=== PATIENT | male | born 1950 | race Caucasian/White ===

== ENCOUNTER 2017-02-10 15:46 | Emergency (ER) | payer OTHER, BC ==
[2017-02-10] MEDS ORDERED: Sodium Chloride 0.9% 10 ML Syringe FLUSH PRN (16:33)
--- NOTE | 2017-02-10 16:39 | EDM.PDOC ---
ED HPI GENERAL MEDICAL PROBLEM - General Chief Complaint: Gastrointestinal Problem Stated Complaint: NAUSEA,WEAKNESS,CONFUSION Time Seen by Provider: 02/10/17 16:09 Source of Information: Reports: Patient History Limitations: Reports: No Limitations - History of Present Illness INITIAL COMMENTS - FREE TEXT/NARRATIVE: 66 y/o M with highly complex medical history including pulmonary hypertension on Remodulin subcutaneous via abd wall port, and Adempas, also cirrhosis due to hep C and remote ETOH abuse, diabetes, presents with malaise. Had vomiting/ diarrhea 2-3 days ago, many episodes, was seen in [facility] ED and discharged with diagnosis of gastroenteritis. Vomiting has resolved. Poor PO intake due to nausea/malaise. Decreased urinary output today, patient states he' s hardly urinated at all. Continues to have some diarrhea but improving. No abdominal pain. No fever. Mild SOB. No CP. Denies cough. No lower extremity pain/swelling. Compliant with meds. Visiting here in town as daughter gave to twins yesterday. Family states he's been intermittenly mildly confused today which is not typical for him. - Related Data Allergies Allergy/AdvReac Type Severity Reaction Status Date / Time duloxetine HCl Allergy Nausea Verified 02/10/17 15:55 [From Cymbalta] phenylbutazone Allergy Edema Verified 02/10/17 15:55 [From Butazolidin] Home Meds: Home Meds Finasteride [Proscar] 5 mg PO DAILY 10/28/15 [History] Pregabalin [Lyrica] 300 mg PO BID 10/28/15 [History] Tamsulosin [Flomax] 0.4 mg PO BID 10/28/15 [History] glipiZIDE [Glipizide] 2.5 mg PO BID 10/28/15 [History] metFORMIN [Glucophage XR] 500 mg PO DAILY 10/28/15 [History] Bumetanide 2 mg PO BID #0 04/15/16 [Rx] Allopurinol [Zyloprim] 100 mg PO DAILY 12/22/16 [History] Ascorbic Acid [Vitamin C] 100 mg PO DAILY 12/22/16 [History] Folic Acid 1 mg PO DAILY 12/22/16 [History] Pantoprazole Sodium [Protonix] 40 mg PO DAILY 12/22/16 [History] Potassium Chloride [Klor-Con] 20 meq PO DAILY 12/22/16 [History] Riociguat [Adempas] 0.5 mg PO ASDIRECTED 12/22/16 [History] Spironolactone [Aldactone] 25 mg PO TID 12/22/16 [History] Temazepam 30 mg PO BEDTIME 12/22/16 [History] oxyCODONE 5 mg PO BID 12/22/16 [History] Treprostinil Sodium [Remodulin] 2.4 mg IJ ASDIRECTED 02/09/17 [History] Past Medical History HEENT History: Reports: Impaired Vision Cardiovascular History: Reports: Hypertension, Pulmonary Hypertension, PVD Respiratory History: Reports: COPD Other Respiratory History: pulmonary hypertension Gastrointestinal History: Reports: Other (See Below) Other Gastrointestinal History: hepatitis C, treated Genitourinary History: Reports: BPH Musculoskeletal History: Reports: None Neurological History: Reports: Neuropathy, Diabetic Other Neuro History: Diabetic neuropathy in lower extremities Psychiatric History: Reports: None Endocrine/Metabolic History: Reports: Diabetes, Type II, IDDM Hematologic History: Reports: None Immunologic History: Reports: None Oncologic (Cancer) History: Reports: None Dermatologic History: Reports: None - Infectious Disease History Infectious Disease History: Reports: Hepatitis C - Past Surgical History Head Surgeries/Procedures: Reports: None Respiratory Surgical History: Reports: Other (See Below) Social & Family History - Family History Family Medical History: Noncontributory - Tobacco Use Smoking Status *Q: Current Some Day Smoker Years of Tobacco use: 40 Packs/Tins Daily: 0.5 Used Tobacco, but Quit: Yes Month Tobacco Last Used: 05/23/2010 Second Hand Smoke Exposure: No - Caffeine Use Caffeine Use: Reports: Coffee, Soda - Alcohol Use Days Per Week of Alcohol Use: 7 Number of Drinks Per Day: 10 (3-10) Total Drinks Per Week: 70 - Recreational Drug Use Recreational Drug Use: No - Living Situation & Occupation Living situation: Reports: , with Spouse Occupation: Disabled ED ROS GENERAL - Review of Systems Review Of Systems: See Below Constitutional: Reports: Malaise, Weakness, Fatigue HEENT: Reports: No Symptoms Respiratory: Denies: Shortness of Breath, Cough Cardiovascular: Reports: Dyspnea on Exertion. Denies: Chest Pain Endocrine: Reports: Fatigue GI/Abdominal: Reports: Nausea, Vomiting. Denies: Abdominal Pain : Denies: Dysuria Musculoskeletal: Denies: Leg Pain Skin: Reports: No Symptoms Neurological: Reports: Confusion, Dizziness Psychiatric: Reports: No Symptoms Hematologic/Lymphatic: Reports: No Symptoms Immunologic: Reports: No Symptoms ED EXAM, GI/ABD - Physical Exam Exam: See Below Exam Limited By: No Limitations General Appearance: Alert, No Apparent Distress, Other (ill appearing) Eyes: Bilateral: Normal Appearance Ears: Normal External Exam Nose: Normal Inspection Throat/Mouth: Other (dry mucous membranes) Head: Atraumatic, Normocephalic Neck: Normal Inspection Respiratory/Chest: No Accessory Muscle Use, Chest Non-Tender, Other (bibasilar crackles most prominent on left) Cardiovascular: Normal Peripheral Pulses, Regular Rate, Rhythm, No Edema GI/Abdominal Exam: Soft, Other (distended, + fluid wave, nontender, no rebound/ guarding, port in LLQ with dressing clean, dry, and intact. approx 6 cm surrounding erythema/warmth confluent, no crepitus, states this is stable appearance and typical after dressing changes (dressing changed yesterday)) Back Exam: Normal Inspection Extremities: Other (bilat lower extremity brawny dark color changes suggestive of chronic venous stasis, no edema) Neurological: Alert, Oriented, CN II-XII Intact, Normal Cognition Psychiatric: Normal Affect, Normal Mood Skin Exam: Warm, Dry, Intact, Normal Color, No Rash Course - Vital Signs Last Recorded V/S: Last Vital Signs Temp 36.3 C 02/10/17 15:56 Pulse 94 02/10/17 15:56 Resp BP 83/60 L 02/10/17 15:56 Pulse Ox 84 L 02/10/17 15:56 - Orders/Labs/Meds Orders: Active Orders 24 hr Category Date Time Status Peripheral IV Care [RC] . DIRECTED Care 02/10/17 16:34 Active Chest 1V Frontal [CR] Stat Exams 02/10/17 16:33 Taken CULTURE BLOOD [BC] Stat Lab 02/10/17 16:57 Received CULTURE BLOOD [BC] Stat Lab 02/10/17 17:04 Received Magnesium Sulfate/Water [Magnesium Sulfate 2 GM in Med 02/10/17 17:52 Active Water 50 ML] 2 gm Premix Bag 1 bag IV ONETIME Sodium Chloride 0.9% [Saline Flush] Med 02/10/17 16:33 Active 10 ml FLUSH ASDIRECTED PRN Vancomycin 1 gm Med 02/10/17 17:15 Active Vancomycin 500 mg Sodium Chloride 0.9% [Normal Saline] 500 ml IV Q24H Blood Culture x2 Reflex Set [OM.PC] Stat Oth 02/10/17 16:33 Ordered Peripheral IV Insertion Adult [OM.PC] Routine Oth 02/10/17 16:33 Ordered EKG 12 Lead [EK] Stat Ther 02/10/17 16:35 Ordered EKG 12 Lead [EK] Stat Ther 02/10/17 17:19 Ordered Medication Orders Vancomycin HCl 1 gm/Vancomycin HCl 500 mg/ Sodium Chloride 500 mls @ 333 mls/ hr IV Q24H USHA Last Admin: 02/10/17 18:38 Dose: 333 mls/hr Magnesium Sulfate 2 gm/ Premix 50 mls @ 25 mls/hr IV ONETIME ONE Stop: 02/10/17 19:51 Last Admin: 02/10/17 18:45 Dose: 25 mls/hr Sodium Chloride (Saline Flush) 10 ml FLUSH ASDIRECTED PRN PRN Reason: Keep Vein Open Last Admin: 02/10/17 16:48 Dose: 10 ml Labs: Laboratory Tests 02/10/17 02/10/17 02/10/17 Range/Units 16:05 16:05 16:05 WBC 5.45 (4.23-9.07) K/mm3 RBC 5.57 (4.63-6.08) M/mm3 Hgb 16.1 (13.7-17.5) gm/L Hct 48.3 (40.1-51.0) % MCV 86.7 (79.0-92.2) fl MCH 28.9 (25.7-32.2) pg MCHC 33.3 (32.2-35.5) g/dl RDW Std Deviation 51.0 H (35.1-43.9) fL Plt Count 136 L (163-337) K/mm3 MPV 12.2 (9.4-12.3) fl Neut % (Auto) 78.3 H (34.0-67.9) % Lymph % (Auto) 10.1 L (21.8-53.1) % [place] % (Auto) 10.1 (5.3-12.2) % Eos % (Auto) 1.1 (0.8-7.0) Baso % (Auto) 0.2 (0.1-1.2) % Neut # (Auto) 4.27 (1.78-5.38) K/mm3 Lymph # (Auto) 0.55 L (1.32-3.57) K/mm3 [place] # (Auto) 0.55 (0.30-0.82) K/mm3 Eos # (Auto) 0.06 (0.04-0.54) K/mm3 Baso # (Auto) 0.01 (0.01-0.08) K/mm3 PT 13.4 H (8.0-13.0) SECONDS INR 1.21 Sodium 127 L (136-145) mEq/L Potassium 4.6 (3.5-5.1) mEq/L Chloride 92 L (98-107) mEq/L Carbon Dioxide 25 (21-32) mEq/L Anion Gap 14.6 (5-15) BUN 65 H (7-18) mg/dL Creatinine 2.7 H (0.7-1.3) mg/dL Est Cr Clr Drug Dosing TNP Estimated GFR (MDRD) 24 (>60) mL/min BUN/Creatinine Ratio 24.1 H (14-18) Glucose 174 H (80-115) mg/dL POC Glucose (80-115) mg/dL Lactic Acid (0.4-2.0) mmol/L Calcium 9.4 (8.5-10.1) mg/dL Magnesium 1.5 L (1.8-2.4) mg/dl Total Bilirubin 1.2 H (0.2-1.0) mg/dL AST 20 (15-37) U/L ALT 22 (16-63) U/L Alkaline Phosphatase 105 (46-116) U/L Ammonia (11-32) umol/L Troponin I < 0.017 (0.00-0.056) ng/mL NT-Pro-B Natriuret Pep 4059 H (0-125) pg/mL Total Protein 9.9 H (6.4-8.2) g/dl Albumin 3.9 (3.4-5.0) g/dl Globulin 6.0 gm/dL Albumin/Globulin Ratio 0.7 L (1-2) Lipase 185 (73-393) U/L Urine Color (Yellow) Urine Appearance (Clear) Urine pH (5.0-8.0) Ur Specific [place] (1.005-1.030) Urine Protein (Negative) Urine Glucose (UA) (Negative) Urine Ketones (Negative) Urine Occult Blood (Negative) Urine Nitrite (Negative) Urine Bilirubin (Negative) Urine Urobilinogen (0.2-1.0) Ur Leukocyte Esterase (Negative) Urine RBC (0-5) /hpf Urine WBC (0-5) /hpf Ur Epithelial Cells (0-5) /hpf Urine Bacteria (FEW) /hpf Hyaline Casts (0-5) /lpf Urine Mucus (FEW) /hpf 02/10/17 02/10/17 02/10/17 Range/Units 16:08 16:57 16:57 WBC (4.23-9.07) K/mm3 RBC (4.63-6.08) M/mm3 Hgb (13.7-17.5) gm/L Hct (40.1-51.0) % MCV (79.0-92.2) fl MCH (25.7-32.2) pg MCHC (32.2-35.5) g/dl RDW Std Deviation (35.1-43.9) fL Plt Count (163-337) K/mm3 MPV (9.4-12.3) fl Neut % (Auto) (34.0-67.9) % Lymph % (Auto) (21.8-53.1) % [place] % (Auto) (5.3-12.2) % Eos % (Auto) (0.8-7.0) Baso % (Auto) (0.1-1.2) % Neut # (Auto) (1.78-5.38) K/mm3 Lymph # (Auto) (1.32-3.57) K/mm3 [place] # (Auto) (0.30-0.82) K/mm3 Eos # (Auto) (0.04-0.54) K/mm3 Baso # (Auto) (0.01-0.08) K/mm3 PT (8.0-13.0) SECONDS INR Sodium (136-145) mEq/L Potassium (3.5-5.1) mEq/L Chloride (98-107) mEq/L Carbon Dioxide (21-32) mEq/L Anion Gap (5-15) BUN (7-18) mg/dL Creatinine (0.7-1.3) mg/dL Est Cr Clr Drug Dosing Estimated GFR (MDRD) (>60) mL/min BUN/Creatinine Ratio (14-18) Glucose (80-115) mg/dL POC Glucose 175 H (80-115) mg/dL Lactic Acid 1.3 (0.4-2.0) mmol/L Calcium (8.5-10.1) mg/dL Magnesium (1.8-2.4) mg/dl Total Bilirubin (0.2-1.0) mg/dL AST (15-37) U/L ALT (16-63) U/L Alkaline Phosphatase (46-116) U/L Ammonia 23 (11-32) umol/L Troponin I (0.00-0.056) ng/mL NT-Pro-B Natriuret Pep (0-125) pg/mL Total Protein (6.4-8.2) g/dl Albumin (3.4-5.0) g/dl Globulin gm/dL Albumin/Globulin Ratio (1-2) Lipase (73-393) U/L Urine Color (Yellow) Urine Appearance (Clear) Urine pH (5.0-8.0) Ur Specific [place] (1.005-1.030) Urine Protein (Negative) Urine Glucose (UA) (Negative) Urine Ketones (Negative) Urine Occult Blood (Negative) Urine Nitrite (Negative) Urine Bilirubin (Negative) Urine Urobilinogen (0.2-1.0) Ur Leukocyte Esterase (Negative) Urine RBC (0-5) /hpf Urine WBC (0-5) /hpf Ur Epithelial Cells (0-5) /hpf Urine Bacteria (FEW) /hpf Hyaline Casts (0-5) /lpf Urine Mucus (FEW) /hpf 02/10/17 Range/Units 18:10 WBC (4.23-9.07) K/mm3 RBC (4.63-6.08) M/mm3 Hgb (13.7-17.5) gm/L Hct (40.1-51.0) % MCV (79.0-92.2) fl MCH (25.7-32.2) pg MCHC (32.2-35.5) g/dl RDW Std Deviation (35.1-43.9) fL Plt Count (163-337) K/mm3 MPV (9.4-12.3) fl Neut % (Auto) (34.0-67.9) % Lymph % (Auto) (21.8-53.1) % [place] % (Auto) (5.3-12.2) % Eos % (Auto) (0.8-7.0) Baso % (Auto) (0.1-1.2) % Neut # (Auto) (1.78-5.38) K/mm3 Lymph # (Auto) (1.32-3.57) K/mm3 [place] # (Auto) (0.30-0.82) K/mm3 Eos # (Auto) (0.04-0.54) K/mm3 Baso # (Auto) (0.01-0.08) K/mm3 PT (8.0-13.0) SECONDS INR Sodium (136-145) mEq/L Potassium (3.5-5.1) mEq/L Chloride (98-107) mEq/L Carbon Dioxide (21-32) mEq/L Anion Gap (5-15) BUN (7-18) mg/dL Creatinine (0.7-1.3) mg/dL Est Cr Clr Drug Dosing Estimated GFR (MDRD) (>60) mL/min BUN/Creatinine Ratio (14-18) Glucose (80-115) mg/dL POC Glucose (80-115) mg/dL Lactic Acid (0.4-2.0) mmol/L Calcium (8.5-10.1) mg/dL Magnesium (1.8-2.4) mg/dl Total Bilirubin (0.2-1.0) mg/dL AST (15-37) U/L ALT (16-63) U/L Alkaline Phosphatase (46-116) U/L Ammonia (11-32) umol/L Troponin I (0.00-0.056) ng/mL NT-Pro-B Natriuret Pep (0-125) pg/mL Total Protein (6.4-8.2) g/dl Albumin (3.4-5.0) g/dl Globulin gm/dL Albumin/Globulin Ratio (1-2) Lipase (73-393) U/L Urine Color Yellow (Yellow) Urine Appearance Clear (Clear) Urine pH 6.0 (5.0-8.0) Ur Specific [place] 1.020 (1.005-1.030) Urine Protein Negative (Negative) Urine Glucose (UA) Negative (Negative) Urine Ketones Negative (Negative) Urine Occult Blood Negative (Negative) Urine Nitrite Negative (Negative) Urine Bilirubin Negative (Negative) Urine Urobilinogen 0.2 (0.2-1.0) Ur Leukocyte Esterase Negative (Negative) Urine RBC Not seen (0-5) /hpf Urine WBC 0-5 (0-5) /hpf Ur Epithelial Cells 10-20 H (0-5) /hpf Urine Bacteria Not seen (FEW) /hpf Hyaline Casts 0-5 (0-5) /lpf Urine Mucus Not seen (FEW) /hpf Meds: Medications Generic Name Dose Route Start Last Admin Trade Name Freq PRN Reason Stop Dose Admin Vancomycin HCl 1 gm/ 500 mls @ 333 mls/hr 02/10/17 17:15 02/10/17 18:38 Vancomycin HCl 500 mg/ Sodium IV 333 mls/hr Chloride Q24H USHA Administration Magnesium Sulfate 2 gm/ Premix 50 mls @ 25 mls/hr 02/10/17 17:52 02/10/17 18: 45 IV 02/10/17 19:51 25 mls/hr ONETIME ONE Administration Sodium Chloride 10 ml 02/10/17 16:33 02/10/17 16:48 Saline Flush FLUSH 10 ml ASDIRECTED PRN Administration Keep Vein Open Discontinued Medications Generic Name Dose Route Start Last Admin Trade Name Freq PRN Reason Stop Dose Admin Piperacillin Sod/Tazobactam 100 mls @ 200 mls/hr 02/10/17 17:13 02/10/17 17: 42 Sod 4.5 gm/ Sodium Chloride IV 02/10/17 17:42 200 mls/hr ONETIME ONE Administration Sodium Chloride 250 mls @ 1,000 mls/hr 02/10/17 17:38 02/10/17 17:41 Normal Saline IV 02/10/17 17:52 1,000 mls/hr ONETIME ONE Administration - Re-Assessments/Exams Free Text/Narrative Re-Assessment/Exam: 02/10/17 17:[address] Anders, patient's pulmonary hypertension specialist in [place]. He states that patient is highly brittle pulmonary htn patient, very complex, and very brittle with his significant comorbidities. Dr. Anders feels patient would best be served in [place] where he can consult. Family agrees with plan to transfer. Dr. Encinas, [facility] hospitalist in [place] accepts the patient for transfer. Will go by fixed wing given hypotension, significant O2 requirement, currently stable but high risk for decompensation. Labs show acute kidney injury, elevated BUN suggestive of prerenal etiology. XR shows LLL infiltrate, no significant pulmonary edema. I suspect pneumonia. Vanc/zosyn ordered given health-care associated. Will give 250 cc bolus of NS as pt has no clinical signs of volume overload and looks dry on exam/cxr/labs. EKG's show nonspecific conduction delay, deep T wave inversions throughout precordial leads, no ST elevation, similar to prior, no significant change. Cardiac enzymes neg. 02/10/17 19:04 02/10/17 19:13 Departure - Departure Time of Disposition: 19:08 Disposition: DC/Tfer to [facility] 02 Clinical Impression: Acute renal insufficiency, Dehydration, Hypoxia, Pulmonary hypertension Pneumonia Qualifiers: Pneumonia type: due to unspecified organism Laterality: left Lung location: lower lobe of lung Qualified Code(s): J18.1 - Lobar pneumonia, unspecified organism Ascites Qualifiers: Ascites type: other type Qualified Code(s): R18.8 - Other ascites - Discharge Information Referrals: PCP,Not In Area [Primary Care Provider] - Forms: ED Department Discharge - My Orders Last 24 Hours: My Active Orders 02/10/17 16:33 Chest 1V Frontal [CR] Stat Sodium Chloride 0.9% [Saline Flush] 10 ml FLUSH ASDIRECTED PRN Blood Culture x2 Reflex Set [OM.PC] Stat Peripheral IV Insertion Adult [OM.PC] Routine 02/10/17 16:34 Peripheral IV Care [RC] . DIRECTED 02/10/17 16:35 EKG 12 Lead [EK] Stat 02/10/17 16:57 CULTURE BLOOD [BC] Stat 02/10/17 17:04 CULTURE BLOOD [BC] Stat 02/10/17 17:15 Vancomycin 1 gm Vancomycin 500 mg Sodium Chloride 0.9% [Normal Saline] 500 ml IV Q24H 02/10/17 17:19 EKG 12 Lead [EK] Stat 02/10/17 17:52 Magnesium Sulfate/Water [Magnesium Sulfate 2 GM in Water 50 ML] 2 gm Premix Bag 1 bag IV ONETIME - Assessment/Plan Last 24 Hours: My Active Orders 02/10/17 16:33 Chest 1V Frontal [CR] Stat Sodium Chloride 0.9% [Saline Flush] 10 ml FLUSH ASDIRECTED PRN Blood Culture x2 Reflex Set [OM.PC] Stat Peripheral IV Insertion Adult [OM.PC] Routine 02/10/17 16:34 Peripheral IV Care [RC] . DIRECTED 02/10/17 16:35 EKG 12 Lead [EK] Stat 02/10/17 16:57 CULTURE BLOOD [BC] Stat 02/10/17 17:04 CULTURE BLOOD [BC] Stat 02/10/17 17:15 Vancomycin 1 gm Vancomycin 500 mg Sodium Chloride 0.9% [Normal Saline] 500 ml IV Q24H 02/10/17 17:19 EKG 12 Lead [EK] Stat 02/10/17 17:52 Magnesium Sulfate/Water [Magnesium Sulfate 2 GM in Water 50 ML] 2 gm Premix Bag 1 bag IV ONETIME
[2017-02-10] MEDS ORDERED: Piperacillin/Tazobactam 4.5 GM in Sodium Chloride 0.9% 100 ML IV ONE (17:13)
[2017-02-10] MEDS ORDERED: Vancomycin 1 GM, Vancomycin 500 MG in Sodium Chloride 0.9% 500 ML IV SCH (17:15)
[2017-02-10] MEDS ORDERED: Sodium Chloride 0.9% 250 ML IV ONE (17:38)
[2017-02-10] MEDS ORDERED: Magnesium Sulfate/Water 2 GM in Premix Bag 1 BAG IV ONE (17:52)
[2017-02-10 19:31] VITALS: BP 92/62
--- NOTE | 2017-02-11 07:03 | CR ---
Chest: Portable view of the chest was obtained. Comparison: No previous study. Increased density within left base is seen. Lungs otherwise are clear. Heart size appears within normal limits for portable technique. Slightly tortuous thoracic aorta is seen. Bony structures are grossly intact. Impression: 1. Mild increased density within left lung base. If patient has infectious symptoms this could represent an area of pneumonia. 2. No additional abnormality is identified on portable chest x-ray. Diagnostic code #3
== END 2017-02-10 19:15 ==
LOC: JD.ED 15:46
DX: J18.9 Pneumonia, unspecified organism (principal); I27.2 Other secondary pulmonary hypertension; N28.9 Disorder of kidney and ureter, unspecified; E86.0 Dehydration; R18.8 Other ascites; J44.9 Chronic obstructive pulmonary disease, unspecified; E11.40 Type 2 diabetes mellitus with diabetic neuropathy, unspecified; F17.210 Nicotine dependence, cigarettes, uncomplicated; Z79.899 Other long term (current) drug therapy
CPT/HCPCS: 36415; 71010; 80053; 81001; 82140; 82962; 83605; 83690; 83735; 83880; 84484; 85025; 85610; 87040; 93005; 96365; 96367; 96368; 99285; J2543; J3370; J7030; J7040; J7050; J3475